=== PATIENT | male | born 1935 | race Caucasian/White ===

== ENCOUNTER 2016-11-07 09:54 | Emergency (ER) | payer MEDICARE, OTHER ==
[2016-11-07 11:42] LABS: Anion Gap 15 mmol/L (10-20); BUN (Urea Nitrogen) 13 mg/dL (8.4-25.7); CK (CPK) 99 U/L (30-200); Calc. Creatinine Clearance 0 mL/min (70-130); Calcium 9.4 mg/dL (7.8-10.44); Carbon Dioxide 24 mmol/L (23-31); Chloride 99 mmol/L (98-107); Estimated GFR-MDRD 72; Glucose 105 mg/dL (83-110); Potassium 4.8 mmol/L (3.5-5.1); Sodium 133 mmol/L (136-145)
[2016-11-07 11:51] LABS: #Eosinphils 0.1 thou/uL (0.0-0.7); #Lymphocytes 1.3 thou/uL (1.20-3.40); #Monocytes 0.7 thou/uL (0.11-0.59); #Neutrophils 5.7 thou/uL (1.40-6.50); %Basophils 0.6 % (0.0-1.0); %Eosinophils 0.9 % (0.0-10.0); %Monocytes 8.5 % (0.0-10.0); %Neutrophils 73.2 % (42.0-75.0); Hemoglobin 13.6 g/dL (14.0-18.0); Mean Corpuscular HGB CONC 34.2 g/dL (32.0-36.0); Mean Corpuscular Hemoglobin 33.3 pg (27.0-31.0); Mean Corpuscular Volume 97.3 fl (80.0-94.0); Mean Platelet Volume 8.7 fL (7.4-10.4); Platelet Count 220 thou/uL (130-400); RBC Distribution Width 11.7 % (11.5-14.5); Red Blood Cell (RBC) Count 4.08 mill/uL (4.70-6.10); White Blood Cell (WBC) Count 7.8 thou/uL (4.8-10.8)
== END 2016-11-07 12:17 | disposition home or self-care (01) ==
LOC: MADERS 09:54
DX: R63.0 Anorexia (principal); R11.0 Nausea; F17.210 Nicotine dependence, cigarettes, uncomplicated
CPT/HCPCS: 36415; 80048; 82550; 85025; 99284

== ENCOUNTER 2016-11-08 16:30 | Emergency (ER) | payer MEDICARE, OTHER ==
[~2016-11-08 16:30] MED LIST: Donnatal Elixir 16.2 MG/5 ML UDCUP ONE; Iopamidol 370 76% 100 ML VIAL ONE
[2016-11-08] MEDS ORDERED: Mag-Al Plus 1200 MG/1200 MG/120 MG/30 ML UDCUP ONE ×2 (17:08→20:33)
[2016-11-08 17:30] LABS: #Eosinphils 0.1 thou/uL (0.0-0.7); #Monocytes 0.7 thou/uL (0.11-0.59); #Neutrophils 4.4 thou/uL (1.40-6.50); %Basophils 0.7 % (0.0-1.0); %Eosinophils 1.3 % (0.0-10.0); %Lymphocytes 27.4 % (21.0-51.0); %Monocytes 10.2 % (0.0-10.0); %Neutrophils 60.5 % (42.0-75.0); Hemoglobin 12.8 g/dL (14.0-18.0); Mean Corpuscular HGB CONC 35.3 g/dL (32.0-36.0); Mean Corpuscular Hemoglobin 33.6 pg (27.0-31.0); Mean Corpuscular Volume 95.4 fl (80.0-94.0); Mean Platelet Volume 8.4 fL (7.4-10.4); Platelet Count 228 thou/uL (130-400); RBC Distribution Width 11.3 % (11.5-14.5); Red Blood Cell (RBC) Count 3.82 mill/uL (4.70-6.10); White Blood Cell (WBC) Count 7.3 thou/uL (4.8-10.8)
[2016-11-08 17:45] LABS: ALT (SGPT) 27 U/L (0-55); AST (SGOT) 31 U/L (5-34); Alkaline Phosphatase 76 U/L (40-150); Anion Gap 11 mmol/L (10-20); BUN (Urea Nitrogen) 14 mg/dL (8.4-25.7); Bilirubin, Total 0.7 mg/dL (0.2-1.2); CRP (Inflammatory) 0.58 mg/dL (= or < 0.5); Calc. Creatinine Clearance 0 mL/min (70-130); Calcium 9.1 mg/dL (7.8-10.44); Carbon Dioxide 27 mmol/L (23-31); Chloride 98 mmol/L (98-107); Estimated GFR-MDRD 70; Globulin 2.7 g/dL (2.4-3.5); Glucose 97 mg/dL (83-110); Lipase 20 U/L (8-78); Potassium 4.1 mmol/L (3.5-5.1); Protein, Total 6.7 g/dL (5.8-8.1); Sodium 132 mmol/L (136-145)
--- NOTE | 2016-11-08 18:02 | RAD ---
ABDOMINAL SERIES WITH UPRIGHT CHEST AND TWO VIEW ABDOMEN: 11/08/16 Upright chest obtained. Supine and upright views of abdomen obtained. HISTORY: Abdominal pain. The lung bell appear clear. There is no evidence of free intraperitoneal air. There is scattered s tool and gas in the colon. There is mild increased small bowel gas; however, no evidence of small linda wel dilatation or obstruction. No definite calcification identified. IMPRESSION: Nonspecific small bowel gas pattern. POS: [facility]
[2016-11-08 18:36] LABS: Bilirubin Negative (Negative); Blood, Urine Negative (Negative); Clarity Clear (Clear); Glucose, Urine (Dipstick) Negative (Negative); Leukocyte Negative (Negative); Nitrite Negative (Negative); Protein, Urine (Dipstick) Negative (Neg-Trace); Urobilinogen 0.2 mg/dL (0.2-1.0); pH, Urine 6.5 (5.0-9.0)
--- NOTE | 2016-11-08 19:11 | CT ---
CT HEAD WITHOUT CONTRAST 11/08/16 HISTORY: Mental status change. FINDINGS: There is mild cortical atrophy. Ventricles have normal size and position. No evidence of infarct, ma ss, or hemorrhage. The sinuses and mastoids are well aerated. IMPRESSION: There is cortical atrophy. No acute process identified. POS: [facility]
[2016-11-08] MEDS ORDERED: Donnatal Elixir 16.2 MG/5 ML UDCUP ONE (20:33)
[2016-11-08] MEDS ORDERED: Lidocaine Viscous Sol 2% 15 ml UD Cup ONE (20:33)
--- NOTE | 2016-11-08 21:23 | CT ---
CT ABDOMEN AND PELVIS WITH IV CONTRAST: 11/08/16 Multiple axial tomograms are obtained through the abdomen and pelvis with IV enhancement. Oral contr ast was given. HISTORY: Abdominal pain. Inability to eat. The lung bases are clear. The liver appears unremarkable. There is a low density lesion in the splee n measuring approximately 1.5 cm with density suggesting a probable splenic cyst. There are granulom atous calcifications in the spleen. 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 Adrenal glands and kidneys appear unremarkable. No hydronephrosis. No evidence of urinary tract calc ulus. Bladder is unremarkable. Small bowel loops appear unremarkable. The appendix is not identified. The colon is unremarkable. Aorta is normal caliber. There are nonspecific retroperitoneal periaortic lymph nodes seen. The larg est measures approximately 1.5 cm to the left of the aorta in the mid abdomen. IMPRESSION: 1. Evidence of a small low density lesion in the spleen, possibly a splenic cyst. Suggest elect guerrero ultrasound correlation for confirmation. 2. Evidence of small sliding diaphragmatic hernia. 3. Nonspecific retroperitoneal lymph nodes. POS: [facility]
[2016-11-08] MEDS ORDERED: Cephalexin 500 MG CAP ONE (22:42)
[2016-11-08] MEDS ORDERED: Ketorolac Tromethamine 30 MG/ML VIAL ONE (22:42)
[2016-11-08] MEDS ORDERED: Sulfameth/Trimethoprim DS 800-160mg TAB ONE (22:42)
== END 2016-11-08 23:30 | disposition home or self-care (01) ==
LOC: MADERS 16:30
DX: K29.00 Acute gastritis without bleeding (principal); I88.9 Nonspecific lymphadenitis, unspecified; F17.210 Nicotine dependence, cigarettes, uncomplicated
CPT/HCPCS: 36415; 70450; 74022; 74177; 80053; 81003; 83690; 85025; 86140; 96374; J1885

== ENCOUNTER 2017-01-16 14:36 | Emergency (ER) | payer MEDICARE, OTHER ==
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
[2017-01-16 15:57] LABS: #Basophils 0.1 thou/uL (0.0-0.2); #Eosinphils 0.2 thou/uL (0.0-0.7); #Lymphocytes 1.8 thou/uL (1.20-3.40); #Monocytes 0.5 thou/uL (0.11-0.59); #Neutrophils 4.1 thou/uL (1.40-6.50); %Basophils 1.4 % (0.0-1.0); %Eosinophils 2.6 % (0.0-10.0); %Lymphocytes 27.1 % (21.0-51.0); %Monocytes 7.6 % (0.0-10.0); %Neutrophils 61.2 % (42.0-75.0); Hemoglobin 13.8 g/dL (14.0-18.0); Mean Corpuscular HGB CONC 33.6 g/dL (32.0-36.0); Mean Corpuscular Hemoglobin 33.2 pg (27.0-31.0); Mean Corpuscular Volume 98.7 fl (80.0-94.0); Platelet Count 191 thou/uL (130-400); RBC Distribution Width 11.7 % (11.5-14.5); Red Blood Cell (RBC) Count 4.16 mill/uL (4.70-6.10); White Blood Cell (WBC) Count 6.8 thou/uL (4.8-10.8)
[2017-01-16 16:05] LABS: AST (SGOT) 21 U/L (5-34); Anion Gap 14 mmol/L (10-20); Bilirubin, Total 0.4 mg/dL (0.2-1.2); Calcium 9.2 mg/dL (7.8-10.44); Carbon Dioxide 26 mmol/L (23-31); Chloride 102 mmol/L (98-107); Potassium 4.3 mmol/L (3.5-5.1); Sodium 138 mmol/L (136-145)
[2017-01-16 16:10] LABS: Troponin I 0.023 ng/mL (< 0.028)
[2017-01-16 16:14] LABS: ALT (SGPT) 13 U/L (0-55); Alkaline Phosphatase 96 U/L (40-150); BUN (Urea Nitrogen) 16 mg/dL (8.4-25.7); Calc. Creatinine Clearance 0 mL/min (70-130); Estimated GFR-MDRD 72; Globulin 2.3 g/dL (2.4-3.5); Protein, Total 6.3 g/dL (5.8-8.1)
[2017-01-16 16:41] LABS: Glucose 88 mg/dL (83-110)
[2017-01-16] MEDS ORDERED: traMADol HCl 50 MG TAB ONE (16:45)
== END 2017-01-16 18:00 | disposition home or self-care (01) ==
LOC: MADERS 14:36
DX: S13.9XXA Sprain of joints and ligaments of unspecified parts of neck, initial encounter (principal); F17.210 Nicotine dependence, cigarettes, uncomplicated; X58.XXXA Exposure to other specified factors, initial encounter
CPT/HCPCS: 71010; 80053; 82553; 83880; 84484; 85025; 93005; J7620

== ENCOUNTER 2023-02-15 10:53 | Outpatient (CLI) | payer MEDICARE, BC | END 2023-02-15 10:54 | disposition home or self-care (01) | LOC: MADCT 10:53 | DX: R17 Unspecified jaundice (principal); R74.01 Elevation of levels of liver transaminase levels; K86.9 Disease of pancreas, unspecified; J47.9 Bronchiectasis, uncomplicated; K83.8 Other specified diseases of biliary tract; K82.8 Other specified diseases of gallbladder; J98.4 Other disorders of lung | CPT/HCPCS: 74176 ==